=== PATIENT | female | born 1950 | race Two or more races ===

== ENCOUNTER 2024-12-16 09:28 | Outpatient (CLI) | payer OTHER | END 2024-12-16 09:41 | disposition home or self-care (01) | LOC: MAMO-SONO 09:28 | PROVIDERS: ATTEND Internal Medicine Sports Medicine | DX: C73 Malignant neoplasm of thyroid gland (principal); Z12.39 Encounter for other screening for malignant neoplasm of breast; Z12.31 Encounter for screening mammogram for malignant neoplasm of breast ==

== ENCOUNTER 2024-12-16 11:26 | Outpatient (CLI) | payer OTHER | END 2024-12-16 11:28 | disposition home or self-care (01) | LOC: NUCLEAR 11:26 | PROVIDERS: ATTEND Internal Medicine Sports Medicine | DX: M81.0 Age-related osteoporosis without current pathological fracture (principal) ==